=== PATIENT | female | born 1965 | race Caucasian/White ===

== ENCOUNTER 2016-09-17 05:31 | Inpatient (IN) | payer BC ==
[~2016-09-17] VITALS: Ht 165.1 cm; Wt 47.7 kg
[2016-09-17] VITALS (16 sets, daily range): BP systolic 109–159; BP diastolic 65–76
[2016-09-17] MEDS ORDERED: ATORVASTATIN CA10 MG ORAL (06:02)
[2016-09-17] MEDS ORDERED: LEXAPRO10 MG ORAL (06:02)
[2016-09-17] MEDS ORDERED: PERCOCET 10-321 EACH ORAL (06:02)
--- NOTE | 2016-09-17 06:49 | Pre-Procedure Note/Attestation ---
Pre-Procedure Note/Attestation Complete Prior to Procedure Planned Procedure: right Procedure Narrative: Right total hip arthroplasty Indications for Procedure Pre-Operative Diagnosis: Right hip arthritis Attestation I attest that I discussed the nature of the procedure; its benefits; risks and complications; and alternatives (and the risks and benefits of such alternatives ), prior to the procedure, with the patient (or the patient's legal sales donor recruitment representative). I attest that, if there was a reasonable possibility of needing a blood transfusion, the patient (or the patient's legal sales donor recruitment representative) was given the [facility] standardized written summary, pursuant to the Stefan Jackelyn Blood Safety Act ([place] Health and Safety Code # 1645, as amended). I attest that I re-evaluated the patient just prior to the surgery and that there has been no change in the patient's H&P, except as documented below: NONE YAZ COTA Sep 17, 2016 06:49
[2016-09-17] MEDS ORDERED: Bupivacaine 0.5% Inj 30 ml vial INJ ONE (06:58)
[2016-09-17] MEDS ORDERED: Ropivacaine 5mg/ml Vial 20ml INJ ONE (06:58)
[2016-09-17] MEDS ORDERED: Ropivacaine 2mg/ml Amp INJ ONE (06:58)
[2016-09-17] MEDS ORDERED: Morphine Sulfate PF 10 ML ONE (06:58)
[2016-09-17] MEDS ORDERED: Bupivacaine w/Epi 0.5% 30ml Vial INJ ONE (06:59)
[2016-09-17] MEDS ORDERED: Bacitracin 50000 Units Vial ONE (06:59)
[2016-09-17] MEDS ORDERED: Milk of Magnesia 30ml Ud ORAL PRN (07:00)
[2016-09-17] MEDS ORDERED: Norco 5mg/325mg tab ORAL PRN (07:00)
[2016-09-17] MEDS ORDERED: oxyCONTIN 20mg tab ORAL ONE (07:00)
[2016-09-17] MEDS ORDERED: ceFAZolin 1gm/50ml Premix 50 ML IV ONE (07:00)
[2016-09-17] MEDS ORDERED: HYDROmorphone 1mg/ml Carpuject SUBQ PRN (07:00)
[2016-09-17] MEDS ORDERED: celeBREX 200mg Cap **SURGERY PATIENTS ONLY ORAL ONE (07:00)
[2016-09-17] MEDS ORDERED: Propofol 10mg/ml 20ml IV ONE ×3 (07:27→08:00)
[2016-09-17] MEDS ORDERED: NS Irrig 1000ml IRRIG ONE (07:45)
[2016-09-17] MEDS ORDERED: LR 1000ml ONE (08:00)
[2016-09-17] MEDS ORDERED: Midazolam 2mg/2ml Inj ONE (08:00)
[2016-09-17] MEDS ORDERED: fentaNYL 100 mcg/2 mL IV ONE (08:00)
[2016-09-17] MEDS ORDERED: Sterile Water For Irrig 2000ml IRRIG ONE (08:00)
[2016-09-17] MEDS ORDERED: NS Irrig 1000ml ONE (08:00)
[2016-09-17] MEDS ORDERED: NS Irrig 2000ml IRRIG ONE (08:00)
--- NOTE | 2016-09-17 08:20 | Anethesia Preoperative Eval ---
Anesthesia Pre-op PMH/ROS General Date of Evaluation: Sep 17, 2016 Time of Evaluation: 06:55 Anesthesiologist: Margarita ASA Score: ASA 2 Mallampati Score Class I : Soft palate, uvula, fauces, pillars visible Class II: Soft palate, uvula, fauces visible Class III: Soft palate, base of uvula visible Class IV: Only hard plate visible Mallampati Classification: Class I Surgeon: Linda Diagnosis: OA right hip Surgical Procedure: Right hip THR Family History: no anesthesia problems Allergies: Coded Allergies: No Known Allergies (Unverified , 09/13/16) Medications: see eMAR Past Medical History Cardiovascular: Reports: HTN, Denies: CAD, DC, arrhythmia, other, valve dz Pulmonary: Denies: COPD, RADHA, asthma, other Gastrointestinal/Genitourinary: Denies: CRI, ESRD, GERD, other Neurologic/Psychiatric: Reports: depression/anxiety, Denies: CVA, TIA, dementia, other Endocrine: Denies: DM, hypothyroidism, other, steroids HEENT: Denies: IQUGMIUT (L), IQUGMIUT (R), cataract (L), cataract (R), glaucoma, other Hematology/Immune: Denies: DVT, anemia, bleeding disorder, other Musculoskeletal/Integumentary: Reports: DJD, OA, Denies: DDD, RA, edema, other PMH Narrative: HTN, hypercholesterolemia, depression PSxH Narrative: C/S X2, breast augmentation Anesthesia Pre-op Phys. Exam Physician Exam Last Vital Signs Date Time Temp Pulse Resp B/P Pulse Ox O2 Delivery O2 Flow Rate FiO2 09/17/16 06:35 97.5 65 18 110/68 96 Room Air Constitutional: NAD Neurologic: CN 2-12 intact Cardiovascular: RRR, no M/R/G Respiratory: CTA Gastrointestinal: S/NT/ND Airway Exam Mallampati Score: Class I MO: full ROM: full Teeth: intact Anesthesia Pre-op A/P Labs WNL Studies Pre-op Studies: EKG - NSR Risk Assessment & Plan Assessment: OA right hip Plan: Spinal, lumbar plexus block for post op pain (surgeon request) Status Change Before Surgery: No Pre-Antibiotics Drug: Ancef Given Within 1 Hr of Incision: Yes Time Given: 07:15 KASSIE DIANA M.D. Sep 17, 2016 08:20
[2016-09-17] MEDS ORDERED: LR 1000ml 1,000 ML IVLG SCH (08:21)
--- NOTE | 2016-09-17 08:21 | Immediate Post-Op Evaluation ---
Immediate Post-Op Evalulation Immediate Post-Op Evalulation Procedure: Right THR Date of Evaluation: Sep 17, 2016 Time of Evaluation: 09:55 IV Fluids: 1350 Estimated Blood Loss: 250 Urinary Output: 350 Blood Pressure Systolic: 123 Blood Pressure Diastolic: 65 Pulse Rate: 59 Respiratory Rate: 20 O2 Sat by Pulse Oximetry: 100 Temperature (Fahrenheit): 97.4 Pain Score (1-10): 0 Nausea: No Vomiting: No Complications No complication Patient Status: reacts, patent, none Hydration Status: adequate Drug: Ancef Given Within 1 Hr of Incision: Yes Time Given: 07:15 KASSIE DIANA M.D. Sep 17, 2016 08:21
[2016-09-17] MEDS ORDERED: LR 1000ml 1,000 ML IV SCH (08:30)
[2016-09-17] MEDS ORDERED: LORazepam Inj 2mg/ml 1ml IV PRN (08:30)
[2016-09-17] MEDS ORDERED: Hydromorphone 0.5mg/0.5ml inj IVP PRN (08:30)
--- NOTE | 2016-09-17 09:30 | Brief Operative Note ---
Immediate Post Operative Note Operative Note Chief Complaint: rt hip pain Pre-op Diagnosis: rt hip arthritis Procedure: rt manjula Post-op Diagnosis: same as pre-op Findings: consistent w/pre-op dx studies Surgeon: [email or web address]. [email or web address] Strap Cutter: charly gramajo Anesthesiologist: md joss Anesthesia: general Specimen: yes Complications: none Condition: stable Estimated Blood Loss: minimal Drains: none Implant(s) used?: Yes - chappell and nephNORMA Portillo Sep 17, 2016 09:30
[2016-09-17] MEDS: Docusate 100mg cap ORAL SCH ×2 (13:00→17:35)
[2016-09-17] MEDS: D5 1/2NS w/KCl 20mEq 1,000 ML IV SCH (13:15)
--- NOTE | 2016-09-17 13:18 | Diagnostic Imaging Report ---
Indication: Postop hip replacement Findings: Single AP view of the pelvis was performed. Right total hip prosthesis demonstrated. No fracture or malalignment seen. Willett catheter noted. Impression: Right total hip replacement
--- NOTE | 2016-09-17 13:23 | Diagnostic Imaging Report ---
Indication: pain Findings: Single AP view of the pelvis was performed. Intraoperative imaging during right total hip replacement noted. Impression: Operative imaging
[2016-09-17] MEDS: oxyCONTIN 20mg tab ORAL SCH (21:24)
--- NOTE | 2016-09-17 22:28 | Operative Note - Dictated ---
DATE OF OPERATION: 09/17/2016 PREOPERATIVE DIAGNOSIS: Right hip end-stage arthritis. POSTOPERATIVE DIAGNOSIS: Right hip end-stage arthritis. PROCEDURE: Right total hip arthroplasty using Diaz and Nephew system, size 5 Anthology proximally coated stem, size 52 acetabular hemispherical arthritic cup with two dome screws, ultra cross-linked polyethylene with 20 degree lip acetabular insert, and high offset neck with standard length 36 mm Oxinium head. SURGEON: Juan Mckeon M.D. PRIME MINISTER: Ruthy Knutson PA-C. ANESTHESIOLOGIST: Stefan Avila M.D. ANESTHESIA: Spinal anesthesia combined with nerve block for postoperative pain management. ESTIMATED BLOOD LOSS: Less than 100 mL. COMPLICATIONS: None. BRIEF HISTORY: The patient is a pleasant 50-year-old female who has had ongoing right hip pain. She failed nonoperative treatment including physical therapy, anti-inflammatory, cortisone injections, and activity modification. After full discussion of the risks and benefits of the surgery and complications associated with including infection, bleeding, neurovascular complication, possibility of the femur fracture, possible acetabular loosening, possible DVT, PE, possible leg length discrepancy, possibility of foot drop as a result of stretch of the nerve, and possibility of other complication that may be associated with the surgery that are unforeseen, the patient opted for surgical treatment as described above. DESCRIPTION OF OPERATIVE PROCEDURE: The patient was brought to the operating room table and was placed supine. All pressure points were well padded. After a spinal anesthesia was induced by anesthesiologist, the patient was placed in a left lateral decubitus position with the right hip up. Axial roll was placed in and the patient was stabilized using pegboard. The right hip was prepped and draped in usual sterile fashion. Preoperative antibiotic was given and a time-out was performed. An incision was made to the right hip and posterolateral approach to the hip was undertaken. Incision was taken through the subcutaneous tissue and the gluteal fascia was opened. The Charnley retractors were placed in and short external rotators were released and capsule was T'd. Capsule was then tagged with #2 FiberWire suture for later closure. At this point, the hip was dislocated. A standard femoral neck cut was performed. The head was removed. This was degenerated superiorly and laterally. Acetabulum had significant wear and tear on it as well. At this point, the anterior acetabular retractor was placed in and appropriate retractors were placed around the acetabulum and the labrum was resected. Sequential reaming was performed from [address] up to 52 mm, which provided excellent coverage of the acetabulum and good punctate bleeding from the acetabulum. The anteversion and inclination was re-created to provide approximately 35 to 40 degrees of anteversion and 40 degrees of inclination. Once this was completed, the 52 mm acetabular cup was then inserted and was knocked down. This provided stability. To provide good additional stability, two extra dome screws were placed in, one 25 mm and one 20 mm to provide an additional security. This provided excellent security of the acetabular cup. At this point, an ultra cross-linked poly was then inserted and locked in without any complication with the lip posteriorly and superiorly. Once this was completed, the wounds were thoroughly irrigated using Simpulse irrigation. It should be noted that irrigation was taken throughout the procedure and before putting the component. Once this was completed, care was given to the femoral side. The retractors around that stem was removed. The hip was internally rotated. The medial retractor was placed in and using a lateralizing cutter, the entry point of the femur was lateralized. A canal finder was placed and sequential broaching was performed from a size [address] up to size 5, which provided excellent axial and rotational stability. Once this was completed, a high offset neck and a standard head was applied and the entire construct was reduced. Range of motion was checked and there was excellent range of motion in flexion, extension, abduction, external rotation, and internal rotation. Stability was checked and there was excellent stability at 0, 30 degrees, 45 degrees, and 90 degrees of flexion with hip in neutral abduction and internal rotation up to 75 to 80 degrees and 90 degrees of flexion. Therefore, the hip was very stable. Anterior stability was checked and there was no anterior instability. Leg lengths were checked and leg length appeared to be equal, both measuring from the kneecap as well as from the foot. Once this was checked and rechecked, intraoperative x-rays were obtained, which showed that the canal was well filled by the femoral component, acetabular component was in good position, and leg lengths on the x-ray appeared to be equal as well. At this point, the entire construct was dislocated. The femoral trial was removed and the hip was thoroughly irrigated using Simpulse irrigation. A 5 mm anthology stem high offset was placed in without any complication. Trialing was performed with 0 and appeared to be excellent and the trial was removed and the Botello taper was dried and Oxinium 36 mm 0 head was then applied without any complications and was locked in. Distally, the entire construct was reduced. Range of motion and leg length and stability was checked and appeared to be perfect as described previously. At this point, all wounds were thoroughly irrigated again with Simpulse irrigation. The trochanter was drilled using #2 FiberWire suture. The trochanter was then drilled and the capsule was closed using #2 FiberWire sutures, the tensor fascia was closed using #1 Vicryl suture, and skin was closed using 3-0 Monocryl suture. Sterile dressing was applied and an abduction pillow was applied. The patient was taken to the recovery room in stable condition. All lap counts and instrument counts were correct. Juan Mckeon M.D. DR: MEGAN JOB#: [id number] CC:
[2016-09-18 00:30] VITALS: BP 102/67
[2016-09-18] MEDS: D5 1/2NS w/KCl 20mEq 1,000 ML IV SCH (02:26)
[2016-09-18 07:14] LABS: MEAN CORPUSCULAR HEMOGLOBIN 33.3 PG (27.0-31.0); MEAN CORPUSCULAR HGB CONC 33.8 G/DL (32.0-36.0); MEAN CORPUSCULAR VOLUME 99 FL (80-99); MEAN PLATELET VOLUME 6.1 FL (6.5-10.1); PLATELET COUNT 272 K/UL (150-450); RED BLOOD COUNT 3.18 M/UL (4.20-5.40); RED CELL DISTRIBUTION WIDTH 11.2 % (11.6-14.8)
[2016-09-18 07:28] LABS: ANION GAP 9 (5-15); CALCIUM 8.2 mg/dL (8.6-10.2); CARBON DIOXIDE 25 mEQ/L (20-30); CHLORIDE 98 mEQ/L (98-107); CREATININE 0.6 mg/dL (0.5-0.9); GLOMERULAR FILTRATION RATE > 60 mL/min (>60); HEMOLYSIS 0; POTASSIUM 3.8 mEQ/L (3.4-4.9); SODIUM 132 mEQ/L (135-145)
[2016-09-18 07:45] LABS: WHITE BLOOD COUNT 22.6 K/UL (4.8-10.8)
[2016-09-18 08:00] VITALS: BP 105/59
--- NOTE | 2016-09-18 08:14 | Orthopedic Progress Note ---
Orthopedic - Progress Note Subjective Symptoms: c/o post-op hip pain Objective Vital Signs Laboratory Tests Test 09/18/16 05:25 White Blood Count 22.6 K/UL (4.8-10.8) *H Red Blood Count 3.18 M/UL (4.20-5.40) L Hemoglobin 10.6 G/DL (12.0-16.0) L Hematocrit 31.3 % (37.0-47.0) L Mean Corpuscular Volume 99 FL (80-99) Mean Corpuscular Hemoglobin 33.3 PG (27.0-31.0) H Mean Corpuscular Hemoglobin Concent 33.8 G/DL (32.0-36.0) Red Cell Distribution Width 11.2 % (11.6-14.8) L Platelet Count 272 K/UL (150-450) Mean Platelet Volume 6.1 FL (6.5-10.1) L Neutrophils (%) (Auto) % (45.0-75.0) Lymphocytes (%) (Auto) % (20.0-45.0) Monocytes (%) (Auto) % (1.0-10.0) Eosinophils (%) (Auto) % (0.0-3.0) Basophils (%) (Auto) % (0.0-2.0) Neutrophils % (Manual) Pending Lymphocytes % (Manual) Pending Platelet Estimate Pending Platelet Morphology Pending Sodium Level 132 mEQ/L (135-145) L Potassium Level 3.8 mEQ/L (3.4-4.9) Chloride Level 98 mEQ/L (98-107) Carbon Dioxide Level 25 mEQ/L (20-30) Anion Gap 9 (5-15) Blood Urea Nitrogen 10 mg/dL (7-23) Creatinine 0.6 mg/dL (0.5-0.9) Estimat Glomerular Filtration Rate > 60 mL/min (>60) Glucose Level 150 mg/dL (74-106) H Calcium Level 8.2 mg/dL (8.6-10.2) L Last 24 Hour Vital Signs Date Time Temp Pulse Resp B/P Pulse Ox O2 Delivery O2 Flow Rate FiO2 09/18/16 08:00 99.3 71 18 105/59 96 Room Air 09/18/16 00:30 98.6 76 18 102/67 93 Room Air 09/17/16 21:43 96 Nasal Cannula 2.0 28 09/17/16 19:46 99.5 80 19 128/75 90 Room Air 09/17/16 19:00 Nasal Cannula 2.0 28 09/17/16 12:45 97.5 66 18 109/66 100 Nasal Cannula 2.0 09/17/16 12:15 97.2 66 17 124/67 100 Nasal Cannula 2.0 09/17/16 11:45 97.2 62 15 118/65 100 Nasal Cannula 2.0 09/17/16 11:30 97.9 59 16 116/70 100 Nasal Cannula 2.0 09/17/16 11:26 Nasal Cannula 2.0 28 09/17/16 11:25 99 Nasal Cannula 2.0 28 09/17/16 11:15 97.9 60 16 129/76 100 Nasal Cannula 2.0 09/17/16 11:00 97.5 64 17 115/67 100 Nasal Cannula 2.0 09/17/16 10:45 97.9 68 16 114/67 99 Nasal Cannula 2.0 09/17/16 10:32 98.0 57 15 128/67 99 Nasal Cannula 3.0 09/17/16 10:20 57 13 112/72 100 Nasal Cannula 3.0 09/17/16 10:10 59 14 123/74 100 Nasal Cannula 3.0 09/17/16 10:00 53 15 157/73 100 Simple Mask 6.0 09/17/16 09:50 53 16 159/69 100 Simple Mask 6.0 09/17/16 09:45 58 20 147/71 100 Simple Mask 6.0 09/17/16 09:44 59 20 100 09/17/16 09:40 97.5 62 14 126/66 100 Simple Mask 6.0 I&O Intake and Output 09/17/16 09/18/16 19:00 07:00 Intake Total 2300 ml 1660 ml Output Total 800 ml 750 ml Balance 1500 ml 910 ml Intake Oral 400 ml 910 ml IV Total 1900 ml 750 ml Output Urine Total 550 ml 750 ml Estimated Blood Loss 250 ml # Voids 1 Wound: clean, dry, intact Drains: none Neuro Status: normal Vascular Status: normal Additional Comments Xray reviewed Assessment Post-op Diagnosis POD 1 Procedure Performed rt manjula Plan Plan: PT, pain management, discharge plan - home with services and DME on Friday, other - monitor WBCs, labs ordered for tomorrow NORMA KENNEDY Sep 18, 2016 08:14
[2016-09-18] MEDS: oxyCONTIN 20mg tab ORAL SCH ×2 (08:43→21:04)
[2016-09-18] MEDS: Docusate 100mg cap ORAL SCH ×3 (08:43→18:01)
[2016-09-18] MEDS: celeBREX 200mg Cap **SURGERY PATIENTS ONLY ORAL SCH (08:43)
[2016-09-18] MEDS ORDERED: Enoxaparin 30mg Inj SUBQ SCH ×2 (09:00→21:00)
[2016-09-18 11:10] VITALS: BP 110/61
[2016-09-18 12:08] LABS: BAND NEUTROPHILS % (MANUAL) 0 % (0-8); BASOPHILS % (MANUAL) 0 % (0-2); EOSINOPHILS % (MANUAL) 0 % (0-3); LYMPHOCYTES % (MANUAL) 15 % (20-45); NEUTROPHILS % (MANUAL) 77 % (45-75); PLATELET ESTIMATE ADEQUATE; PLATELET MORPHOLOGY NORMAL; TOTAL CELLS COUNTED 100
[2016-09-18 16:00] VITALS: BP 121/72
--- NOTE | 2016-09-18 16:16 | 48 Hour Post Anesthesia Eval ---
Post Anesthesia Evaluation Procedure: Right THR Date of Evaluation: Sep 18, 2016 Time of Evaluation: 16:15 Blood Pressure Systolic: 116 0: 58 Pulse Rate: 64 Respiratory Rate: 20 Temperature (Fahrenheit): 97.4 O2 Sat by Pulse Oximetry: 99 Airway: patent Nausea: No Vomiting: No Pain Intensity: 2 Hydration Status: adequate Cardiopulmonary Status: stable Mental Status/LOC: patient returned to baseline Follow-up Care/Observations: n/a Post-Anesthesia Complications: none Follow-up care needed: N/A LETA RUEDA M.D. Sep 18, 2016 16:16
[2016-09-18] MEDS: Norco 7.5mg/325mg tab ORAL PRN (18:00)
[2016-09-18 20:00] VITALS: BP 118/67
[2016-09-18] MEDS: Enoxaparin 30mg Inj SUBQ SCH (21:06)
[2016-09-19] VITALS (7 sets, daily range): BP systolic 102–136; BP diastolic 55–76
[2016-09-19 07:11] LABS: MEAN CORPUSCULAR HEMOGLOBIN 33.9 PG (27.0-31.0); MEAN CORPUSCULAR VOLUME 100 FL (80-99); MEAN PLATELET VOLUME 6.8 FL (6.5-10.1); PLATELET COUNT 305 K/UL (150-450); RED CELL DISTRIBUTION WIDTH 11.3 % (11.6-14.8)
[2016-09-19 07:13] LABS: WHITE BLOOD COUNT 26.1 K/UL (4.8-10.8)
[2016-09-19] MEDS: oxyCONTIN 20mg tab ORAL SCH ×2 (08:54→21:43)
[2016-09-19] MEDS: Docusate 100mg cap ORAL SCH ×3 (08:54→16:52)
--- NOTE | 2016-09-19 08:54 | Orthopedic Progress Note ---
Orthopedic - Progress Note Subjective Symptoms: improved Additional Comments Hip pain is improving. No fever chills/Systemic Signs of infection. WBC count up to 26k Objective Vital Signs Last 24 Hour Vital Signs Date Time Temp Pulse Resp B/P Pulse Ox O2 Delivery O2 Flow Rate FiO2 09/19/16 07:25 98.2 70 18 136/71 96 Room Air 09/19/16 04:00 98.4 81 18 122/76 95 Room Air 09/19/16 00:00 99.1 79 16 121/55 96 Room Air 09/18/16 20:51 96 Nasal Cannula 2.0 28 09/18/16 20:51 Nasal Cannula 2.0 28 09/18/16 20:00 96.4 67 16 118/67 95 Room Air 09/18/16 16:16 64 20 99 09/18/16 16:00 97.9 68 16 121/72 94 Room Air 09/18/16 12:00 97 Nasal Cannula 2.0 28 09/18/16 12:00 Nasal Cannula 2.0 28 09/18/16 11:50 98.0 09/18/16 11:10 98.0 72 18 110/61 94 Room Air I&O Intake and Output 09/18/16 09/19/16 19:00 07:00 Intake Total 450 ml 490 ml Output Total 360 ml 400 ml Balance 90 ml 90 ml Intake Oral 450 ml 490 ml Output Urine Total 360 ml 400 ml # Voids 2 Wound: clean, dry, intact Drains: none Neuro Status: normal Vascular Status: normal Additional Comments Neuro exam intact Assessment Post-op Diagnosis Right JOSE Plan Plan: PT, pain management, discharge to home Additional Comments Monitor WBC, Expect to come down tomorrow. Monitor for fever or other systemic signs of infection. If WBC down tomorrow, consider discharge home with home health. Follow up with me in 2 weeks. Will check progress tomorrow. YAZ COTA Sep 19, 2016 08:54
[2016-09-19] MEDS: celeBREX 200mg Cap **SURGERY PATIENTS ONLY ORAL SCH (08:55)
[2016-09-19] MEDS: Enoxaparin 30mg Inj SUBQ SCH ×2 (08:59→21:45)
[2016-09-19 10:23] LABS: BAND NEUTROPHILS % (MANUAL) 0 % (0-8); BASOPHILS % (MANUAL) 0 % (0-2); EOSINOPHILS % (MANUAL) 0 % (0-3); LYMPHOCYTES % (MANUAL) 18 % (20-45); MACROCYTES 1+; NEUTROPHILS % (MANUAL) 80 % (45-75); PLATELET ESTIMATE ADEQUATE; PLATELET MORPHOLOGY NORMAL; TOTAL CELLS COUNTED 100
[2016-09-19] MEDS: Norco 7.5mg/325mg tab ORAL PRN ×2 (13:22→18:02)
[2016-09-19] MEDS ORDERED: Tubing IV Secondary IV ONE (14:01)
[2016-09-20 00:20] VITALS: BP 97/58
[2016-09-20 04:30] VITALS: BP 100/55
[2016-09-20 06:05] LABS: MEAN CORPUSCULAR HEMOGLOBIN 32.8 PG (27.0-31.0); MEAN CORPUSCULAR HGB CONC 33.2 G/DL (32.0-36.0); MEAN CORPUSCULAR VOLUME 99 FL (80-99); MEAN PLATELET VOLUME 6.4 FL (6.5-10.1); PLATELET COUNT 242 K/UL (150-450); RED BLOOD COUNT 2.64 M/UL (4.20-5.40); WHITE BLOOD COUNT 18.4 K/UL (4.8-10.8)
[2016-09-20] MEDS: Norco 7.5mg/325mg tab ORAL PRN (06:48)
[2016-09-20 08:00] VITALS: BP 116/66
--- NOTE | 2016-09-20 08:20 | Orthopedic Progress Note ---
Orthopedic - Progress Note Subjective Symptoms: improved Objective Vital Signs Laboratory Tests Test 09/20/16 04:35 White Blood Count 18.4 K/UL (4.8-10.8) H Red Blood Count 2.64 M/UL (4.20-5.40) L Hemoglobin 8.7 G/DL (12.0-16.0) L Hematocrit 26.1 % (37.0-47.0) L Mean Corpuscular Volume 99 FL (80-99) Mean Corpuscular Hemoglobin 32.8 PG (27.0-31.0) H Mean Corpuscular Hemoglobin Concent 33.2 G/DL (32.0-36.0) Red Cell Distribution Width 11.0 % (11.6-14.8) L Platelet Count 242 K/UL (150-450) Mean Platelet Volume 6.4 FL (6.5-10.1) L Neutrophils (%) (Auto) % (45.0-75.0) Lymphocytes (%) (Auto) % (20.0-45.0) Monocytes (%) (Auto) % (1.0-10.0) Eosinophils (%) (Auto) % (0.0-3.0) Basophils (%) (Auto) % (0.0-2.0) Neutrophils % (Manual) Pending Lymphocytes % (Manual) Pending Platelet Estimate Pending Platelet Morphology Pending Last 24 Hour Vital Signs Date Time Temp Pulse Resp B/P Pulse Ox O2 Delivery O2 Flow Rate FiO2 09/20/16 07:54 98.6 09/20/16 04:30 98.6 70 18 100/55 96 Room Air 09/20/16 00:20 97.7 70 19 97/58 97 Room Air 09/19/16 20:27 97.5 76 19 121/67 96 Room Air 09/19/16 19:00 Nasal Cannula 2.0 28 09/19/16 19:00 96 Nasal Cannula 2.0 28 09/19/16 15:51 99.7 77 19 102/69 96 Room Air 09/19/16 12:00 99.3 73 18 126/69 96 Room Air I&O Intake and Output 09/19/16 09/20/16 19:00 07:00 Intake Total 360 ml 240 ml Balance 360 ml 240 ml Intake Oral 360 ml 240 ml # Voids 3 1 Wound: clean, dry, intact Drains: none Neuro Status: normal Vascular Status: normal Additional Comments WBC count down Assessment Post-op Diagnosis POD 3 Procedure Performed rt manjula Plan Plan: discharge to home - f/u 10 days in office, other - dressing change today NORMA KENNEDY Sep 20, 2016 08:20
[2016-09-20] MEDS: Docusate 100mg cap ORAL SCH (08:23)
[2016-09-20] MEDS: celeBREX 200mg Cap **SURGERY PATIENTS ONLY ORAL SCH (08:23)
[2016-09-20] MEDS: oxyCONTIN 20mg tab ORAL SCH (08:23)
[2016-09-20] MEDS: Enoxaparin 30mg Inj SUBQ SCH (08:24)
[2016-09-20] MEDS ORDERED: MS CONTIN30 MG ORAL (09:32)
--- NOTE | 2016-09-20 09:38 | Discharge Summary 2 SIG ---
DATE OF ADMISSION: 09/17/2016 DATE OF DISCHARGE: 09/20/2016 Hospital Course: She is a very pleasant, 50-year-old female, who was admitted following right total hip arthroplasty. She has had a benign hospital course and has been followed along by Dr. Todd Nguyen. She has required no blood transfusions and she has done well with physical therapy and pain control. She is being discharged today on 09/20/16 to home with home care services. PHYSICAL EXAMINATION: She is alert and oriented. Her incision is clean, dry, and intact. She is neurovascularly intact. She has been ambulating very well with physical therapy. Laboratory work was followed and white count has come down. She has had no fever and no chills or signs of systemic infection. Pain has been well controlled. She has been tolerating good oral diet and has had return of bowel movements. She will be discharged home with services and all DME. She has all pain medications as well as Lovenox medication. She will continue to use the abduction pillow. We will see her back in the office in 10 days time. Juan Mckeon M.D. I have been assigned to dictate discharge summary on this account and I was not involved in the patient's management. Kiera Jacobs DR: SEU JOB#: [id number] CC: CROINNA
[2016-09-20 10:51] LABS: BAND NEUTROPHILS % (MANUAL) 0 % (0-8); BASOPHILS % (MANUAL) 0 % (0-2); EOSINOPHILS % (MANUAL) 1 % (0-3); LYMPHOCYTES % (MANUAL) 22 % (20-45); NEUTROPHILS % (MANUAL) 72 % (45-75); PLATELET ESTIMATE ADEQUATE; PLATELET MORPHOLOGY NORMAL; TOTAL CELLS COUNTED 100
[2016-09-20 10:52] LABS: MACROCYTES 1+
[2016-09-20 12:00] VITALS: BP 105/64
== END 2016-09-20 12:15 | disposition home health service (06) | DRG 470 ==
LOC: SDSOVERFLO 05:31 → 3E 10:47
PROC: 0SR902Z Replacement of Right Hip Joint with Metal on Polyethylene Synthetic Substitute, Open Approach (ICD-10-PCS; principal; 2016-09-17 07:00)
DX: M16.11 Unilateral primary osteoarthritis, right hip (principal); I10 Essential (primary) hypertension; F17.200 Nicotine dependence, unspecified, uncomplicated; E78.5 Hyperlipidemia, unspecified
CPT/HCPCS: 36415; 72170; 80048; 85007; 85025; 86850; 86900; 86901; 86920; 87081; 94003; 94150; 94760; J2250; J2405